=== PATIENT | female | born 1980 | race Caucasian/White ===

== ENCOUNTER 2018-12-17 10:28 | Emergency (ER) | payer MEDICARE ==
--- NOTE | 2018-12-17 10:35 | ED Physician Documentation ---
Female Urogenital Problems - HISTORIAN Historian: patient - HPI Stated Complaint: vaginal discharge Chief Complaint: Female Urogenital Problems Onset: days ago (14) Location of Pain: other (discharge vaginal ) Further Comments: yes (she reports she has had vaginal discharge - yellow and odorus for two weeks - she states the amount is growing. she was in group home and when realeased she had sex with one male and she thought he used protection although she did not comfirm this. She has mild "discomfort" lower abdomen. Mild burning with urination. She has not had sex since so she denies pain with sex. No fever. No N/V/D.) - Vaginal Bleeding Sexual History: active Contraceptive: condoms - Associated Symptoms Urinary Symptoms: burning w/ urination Discharge: vaginal discharge, odorous discharge, yellowish discharge - ROS CONST: none - PAST HX Past History: none - SOCIAL HX Smoking History: cigarettes Alcohol Use: none Drug Use: none - FAMILY HX Family History: none - REVIEWED ASSESSMENTS Nursing Assessment Reviewed: Yes Vitals Reviewed: Yes Progress - Progress Progress: 1130: discussed options. She states she has no money for meds. DG Female Urogenital Problems - EXAM General Appearance: no acute distress, alert EENT: eye inspection normal, no signs of dehydration Neck: nml inspection Respiratory: no resp. distress, breath sounds nml CVS: reg rate & rhythm, heart sounds normal Abdomen: soft, non-tender, no distention, nml bowel sounds Pelvic: vaginal discharge, moderate, other (discharge yellow/white in color and odorus ). No: herpes-like ulcerations Back: non-tender Skin: color nml, no rash, warm,dry Extremities: non-tender, normal range of motion, no evidence of injury, no edema Neuro: oriented X3 Discharge Clincal Impression: High risk sexual behavior Qualifiers: High risk sexual behavior type: heterosexual Qualified Code(s): Z72.51 - High risk heterosexual behavior Referrals: Primary Doctor,No [Primary Care Provider] - 2 Days Comments: 1. Safe sex 2. Follow up with PCP or OBGYN as soon as possible 3. Notify partner of discharge 4. Return to ER for any concerns Condition: Stable Disposition: 01 HOME, SELF-CARE Decision to Admit: NO Date of Decison to Admit: 12/17/18 Decision Time: 11:51
[2018-12-17] MEDS ORDERED: cefTRIAXone SODIUM 250 MG INJ IM ONE (11:20)
[2018-12-17] MEDS ORDERED: AZITHROMYCIN 250 MG TABLET PO ONE (11:20)
[2018-12-17] MEDS ORDERED: metroNIDAZOLE 500 MG TABLET PO ONE (11:22)
[2018-12-17] MEDS ORDERED: Lidocaine 1% 5ml 10 MG/ML VIAL ONE (11:36)
[2018-12-17] MEDS ORDERED: LIDOCAINE HCL 1% PF 20MG/2ML AMP IM ONE (11:40)
[2018-12-17 12:17] LABS: APPEARANCE,URINE CLOUDY (CLEAR); COLOR,URINE YELLOW (YELLOW); OCCULT BLOOD,URINE NEGATIVE (NEGATIVE); UROBILINOGEN URINE 0.2 Eu (0.2-1.0)
[2018-12-17 12:43] VITALS: BP 118/72
== END 2018-12-17 12:20 | disposition home or self-care (01) ==
LOC: ED 10:28
DX: N89.8 Other specified noninflammatory disorders of vagina (principal); Z72.51 High risk heterosexual behavior
CPT/HCPCS: 81002; 81025; 86694; 86703; 87086; 87491; 87591; 87798; 96372; 99282; 99283; J0696